=== PATIENT | female | born 1975 | race Two or more races ===

== ENCOUNTER 2024-03-06 07:39 | Outpatient (CLI) | payer BC ==
[~2024-03-06 07:39] MED LIST: ENBREL50 MG/ML; GABAPENTIN300 MG
== END 2024-03-06 07:42 | disposition home or self-care (01) ==
LOC: SONOGRAMA 07:39
PROVIDERS: ATTEND Internal Medicine Gastroenterology
DX: R10.9 Unspecified abdominal pain (principal)